=== PATIENT | female | born 1970 | race Caucasian/White ===

== ENCOUNTER 2019-09-18 20:43 | Emergency (ER) | payer OTHER ==
--- NOTE | 2019-09-18 21:08 | ER Document Report ---
ED Medical Screen (RME) - General Chief Complaint: Numbness of Face Stated Complaint: NUMBNESS OF FACE AND RIGHT ARM Time Seen by Provider: 09/18/19 21:03 Primary Care Provider: LUCIA SÁNCHEZ DO [Primary Care Provider] - Follow up as needed Mode of Arrival: Ambulatory Information source: Patient Notes: 48-year-old female presented to ED for complaint of numbness to the right side of her face right shoulder right arm. She states that the numbness to the right side of her tongue started l days ago then today she is developed numbness to the right side of her face shoulder arm and hand. 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 No numbness or weakness to either leg. No other symptoms. I have greeted and performed a rapid initial assessment of this patient. A comprehensive ED assessment and evaluation of the patient, analysis of test results and completion of medical decision making process will be conducted by an additional ED providers. - HPI Onset: Other - Started couple days ago the rest of the numbness started today Onset/Duration: Gradual Quality of pain: Other - Prickly tingly numbness Severity: Moderate Pain Level: 3 Associated Symptoms: None Exacerbated by: Denies Relieved by: Denies Similar symptoms previously: Yes Recently seen / treated by doctor: No - Related Data Smoking: Non-smoker Frequency of alcohol use: None Drug Abuse: None Allergies/Adverse Reactions: No Known Allergies Allergy (Unverified 09/18/19 21:05) Past Medical History - General Information source: Patient - Social History Cigarette use (# per day): No Chew tobacco use (# tins/day): No Frequency of alcohol use: None Drug Abuse: None Lives with: Family Family history: Reviewed & Not Pertinent - Past Medical History Cardiac Medical History: Reports: Hx Hypertension, Other - Reynard's Pulmonary Medical History: Reports: None Neurological Medical History: Reports: None Endocrine Medical History: Reports: None Renal/ Medical History: Reports: None Malignancy Medical History: Reports: None GI Medical History: Reports: None Musculoskeltal Medical History: Reports Hx Arthritis, Reports Hx Musculoskeletal Deformity Skin Medical History: Reports None Psychiatric Medical History: Reports: None Traumatic Medical History: Reports: None Infectious Medical History: Reports: None Past Surgical History: Reports: Hx Cholecystectomy, Hx Hysterectomy, Hx Orthopedic Surgery - Lumbar fusion Doctor's Discharge - Discharge Referrals: ROSKA,LUCIA, DO [Primary Care Provider] - Follow up as needed
--- NOTE | 2019-09-18 21:53 | RADIOLOGY REPORT (SQ) ---
EXAM DESCRIPTION: CT HEAD WITHOUT INTRAVENOUS CONTRAST CLINICAL HISTORY: Paresthesia right face tongue arm shoulder hand COMPARISON: None TECHNIQUE: CT of the head was performed without intravenous contrast .This exam was performed according to our departmental dose-optimization program, which includes automated exposure control, adjustment of the mA and/or KV according to the patient's size and/or use of iterative reconstruction technique. FINDINGS: There is no intracranial hemorrhage, midline shift, mass effect or acute focal infarct. Enlarged sella turcica the pituitary gland appears displaced posteriorly. The superior aspect of the sella turcica is occupied by fat density possibly lipoma. Approximately 12 x 7.5 x 10 mm. There is good sue/white matter differentiation. The ventricular system is normal. Visualized mastoid air cells within normal limits. The paranasal sinuses within normal limits. There is no visualization of calvarial or skull base fractures. Incidental mild hyperostosis frontalis. 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 Consider evaluation of the pituitary gland with MRI including gadolinium. There are no acute intracranial findings.
[2019-09-18 22:30] LABS: ABSOLUTE EOSINOPHILS # (AUTO) 0.1 10^3/uL (0.0-0.6); ABSOLUTE LYMPHOCYTES (AUTO) 2.5 10^3/uL (0.5-4.7); ABSOLUTE MONOCYTES (AUTO) 0.4 10^3/uL (0.1-1.4); ABSOLUTE NEUT (AUTO) 7.9 10^3/uL (1.7-8.2); BASOPHILS % (AUTO) 0.4 % (0-2); EOSINOPHILS % (AUTO) 1.3 % (0-6); HEMATOCRIT 39.9 % (36.0-47.0); HEMOGLOBIN 13.5 g/dL (12.0-15.5); LYMPHOCYTES % (AUTO) 22.4 % (13-45); MEAN CORPUSCULAR HEMOGLOBIN 27.8 pg (27.0-33.4); MEAN CORPUSCULAR HGB CONC 33.8 g/dL (32.0-36.0); MEAN CORPUSCULAR VOLUME 82 fl (80-97); PLATELET COUNT 305 10^3/uL (150-450); RED BLOOD COUNT 4.85 10^6/uL (3.72-5.28); RED CELL DISTRIBUTION WIDTH 14.8 % (11.5-14.0); SEGMENTED NEUTROPHILS % (AUTO) 71.9 % (42-78); TOTAL CELLS COUNTED % (AUTO) 100 %
[2019-09-18 22:40] LABS: INTERNATIONAL RATION (INR) 0.98
[2019-09-18 22:41] LABS: PARTIAL THROMBOPLASTIN TIME 30.3 SEC (23.5-35.8)
[2019-09-18 22:59] LABS: ALBUMIN 4.1 g/dL (3.5-5.0); ALKALINE PHOSPHATASE 102 U/L (38-126); ANION GAP 10 (5-19); ASPARTATE AMINO TRANSFERASE 24 U/L (14-36); BILIRUBIN,DIRECT 0.2 mg/dL (0.0-0.4); BILIRUBIN,TOTAL 0.5 mg/dL (0.2-1.3); BLOOD UREA NITROGEN 16 mg/dL (7-20); CALCIUM 9.7 mg/dL (8.4-10.2); CARBON DIOXIDE 31 mmol/L (22-30); CHLORIDE 97 mmol/L (98-107); GLUCOSE 114 mg/dL (75-110); POTASSIUM 3.5 mmol/L (3.6-5.0); TOTAL PROTEIN 7.3 g/dL (6.3-8.2)
--- NOTE | 2019-09-19 04:05 | ER Document Report ---
ED General <MEHEREN OLMOS - Last Filed: 09/19/19 10:15> - General Mode of Arrival: Ambulatory Information source: Patient TRAVEL OUTSIDE OF THE [place] IN LAST 30 DAYS: No - Related Data Home Medications: losartan, hctz, cardizem, b12 <MARVIN MONTERO - Last Filed: 09/20/19 09:52> - General Chief Complaint: Numbness Stated Complaint: NUMBNESS OF FACE AND RIGHT ARM Time Seen by Provider: 09/18/19 21:03 Primary Care Provider: NEUROLOGY [Provider Group] - Follow up as needed LUCIA SÁNCHEZ DO [ASSOCIATE] - Follow up as needed Notes: 48-year-old woman numbness and tingling in her tongue on the right half. States that the symptoms began approximately 2 days ago. 1 day prior to coming in she developed right facial tingling numbness and tingling in the right arm and hand. She denies weakness in extremities or speech, visual changes. She denies prior history of similar episodes. Denies medical history except hypertension. (MARVIN MONTERO) - Related Data Allergies/Adverse Reactions: No Known Allergies Allergy (Unverified 09/18/19 21:05) Past Medical History - Social History Family History: Reviewed & Not Pertinent <MEHREEN OLMOS - Last Filed: 09/19/19 10:15> - General Information source: Patient - Social History Smoking Status: Never Smoker Cigarette use (# per day): No Chew tobacco use (# tins/day): No Frequency of alcohol use: None Drug Abuse: None Lives with: Family Patient has suicidal ideation: No Patient has homicidal ideation: No - Past Medical History Cardiac Medical History: Reports: Hx Hypertension, Other - Reynard's Pulmonary Medical History: Reports: None Neurological Medical History: Reports: None Endocrine Medical History: Reports: None Renal/ Medical History: Reports: None Malignancy Medical History: Reports: None GI Medical History: Reports: None Musculoskeletal Medical History: Reports Hx Arthritis, Reports Hx Musculoskeletal Deformity Skin Medical History: Reports None Psychiatric Medical History: Reports: None Traumatic Medical History: Reports: None Infectious Medical History: Reports: None Past Surgical History: Reports: Hx Cholecystectomy, Hx Hysterectomy, Hx Orthopedic Surgery - Lumbar fusion <MARVIN MONTERO - Last Filed: 09/20/19 09:52> Review of Systems <MARVIN MONTERO - Last Filed: 09/20/19 09:52> - Review of Systems Notes: Constitutional: Negative for fever. HENT: Negative for sore throat. Eyes: Negative for visual changes. Cardiovascular: Negative for chest pain. Respiratory: Negative for shortness of breath. Gastrointestinal: Negative for abdominal pain, vomiting or diarrhea. Genitourinary: Negative for dysuria. Musculoskeletal: Negative for back pain. Skin: Negative for rash. Neurological: + Paresthesia right side of the tongue, right facial and right upper extremity., No weakness 10 point ROS negative except as marked above and in HPI. (MARVIN MONTERO) Physical Exam <MARVIN MONTREO - Last Filed: 09/20/19 09:52> - Vital signs Vitals: Temp Pulse BP Pulse Ox 98.4 F 81 159/107 H 100 09/18/19 20:59 09/18/19 20:59 09/18/19 20:59 09/18/19 20:59 - Notes Notes: PHYSICAL EXAMINATION: Physical Exam: General: Well-nourished well-developed overweight female in no acute distress HEENT: NC/AT, pupils equal round and reactive to light, MM moist,nares clear, oropharynx clear, airway patent Neck: supple, no adenopathy, no masses. Good range of motion Lungs: clear, no wheezing, no rales no rhonchi CVS: Regular rate and rhythm no murmur gallop or rub Abdomen: Soft, active, nontender, no masses, no hepatosplenomegaly Ext: No edema, clubbing or cyanosis. Neuro: Alert and responsive, moving all 4 extremities on command, cranial nerves intact, no focal findings Skin: Intact no open lesions, no rash PSYCH: Normal mood, normal affect. (MARVIN MONTERO) Course - Laboratory Result Diagrams: 09/18/19 22:10 09/18/19 22:10 <MEHREEN OLMOS - Last Filed: 09/19/19 10:15> - Laboratory Result Diagrams: 09/18/19 22:10 09/18/19 22:10 - Diagnostic Test Radiology reviewed: Image reviewed, Reports reviewed - CT of the head suspected intracellular fatty lesion possibly lipoma, consider evaluation of the pituitary gland with MRI including gadolinium. <MARVIN MONTERO - Last Filed: 09/20/19 09:52> - Re-evaluation Re-evalutation: 09/19/19 10:16 Patient was signed out to me by Dr. Montero. This is a middle-aged female who has had some paresthesias over the right side of her face extending to the right shoulder area over the last several days with an objectively normal neurologic examination per Dr. Montero. Patient also reports some slight tinnitus in volving the right ear and some mild dysgeusia. Patient has persistent paresthesias of the right side of the face on my evaluation but no objective sensory loss. She may have some very subtle right-sided facial ptosis but this does not look a lot different per her . MRI with gadolinium had been ordered but patient is allergic to the contrast agent so she had an unenhanced study. This is read as normal by the radiologist. 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 I discussed options for treatment with patient and her and it was agreed that we would put her on steroid and some acyclovir and have her follow-up with her primary care doctor and neurologist on outpatient basis. (MEHREEN OLMOS) 09/19/19 06:13 I discussed the findings of the CT scan and laboratory data with the patient and explained that a recommendation for MRI had been made by the radiologist. Patient has requested that the MRI be done possible before she is discharged as she would like to get the information to exclude pathology that may require intervention. I explained that an MRI cannot be done before 7 AM. She states she is willing to wait. Patient care is discussed with Dr. Olmos, he will follow-up on the MRI results. (MARVIN MONTERO) - Vital Signs Vital signs: Temp Pulse Resp BP Pulse Ox 98 F 97 18 141/89 H 98 09/19/19 10:36 09/19/19 10:36 09/19/19 10:36 09/19/19 10:36 09/19/19 10:36 - Laboratory Laboratory results interpreted by me: 09/18/19 09/18/19 22:10 22:10 WBC 11.0 H RDW 14.8 H Potassium 3.5 L Chloride 97 L Carbon Dioxide 31 H Glucose 114 H (MARVIN MONTERO) Discharge <MEHREEN OLMOS - Last Filed: 09/19/19 10:15> <MARVIN MONTERO - Last Filed: 09/20/19 09:52> - Discharge Clinical Impression: Facial paresthesia Condition: Stable Disposition: HOME, SELF-CARE Additional Instructions: Follow-up with your primary care provider and neurologist as instructed. Take prescribed medications as directed. Return here as needed for new or worsening symptoms. Prescriptions: Acyclovir [Acyclovir 400 mg Tablet] 800 mg PO 5XD 10 Days #50 tablet Prednisone [Deltasone 20 mg Tablet] 2 tab PO DAILY 5 Days tablet Referrals: LUCIA SÁNCHEZ DO [ASSOCIATE] - Follow up as needed NEUROLOGY [Provider Group] - Follow up as needed
[2019-09-19] MEDS ORDERED: ACETAMINOPHEN 325 MG TABLET PO ONE (04:11)
--- NOTE | 2019-09-19 09:08 | RADIOLOGY REPORT (SQ) ---
EXAM DESCRIPTION: MRI HEAD WITHOUT COMPLETED DATE/TIME: 09/19/2019 8:21 am REASON FOR STUDY: Abnormal CT scan of the head COMPARISON: None. TECHNIQUE: Multiplanar imaging includes non-contrasted T1, T2, FLAIR, and diffusion with ADC map seq uences. Images stored on PACS. LIMITATIONS: None. FINDINGS: ANATOMY: Empty sella anatomic variant. CSF SPACES: Normal in size and contour. No hemorrhage. CEREBRUM: Sulci and gyri normal in size and contour. Normal white matter signal on FLAIR imaging. No evidence of hemorrhage, mass, or extraaxial fluid collection. POSTERIOR FOSSA: No signal alteration. No hemorrhage. No edema, masses or mass effect. Internal keesha tory canals, cerebello-pontine angles, mastoids normal. DIFFUSION IMAGING: Negative for acute or sub-acute infarction. ORBITS: No masses. Globes normal. PARANASAL SINUSES: No fluid levels. Mucosa normal. OTHER: No other significant finding. IMPRESSION: Normal brain. Normal pituitary. EVIDENCE OF ACUTE STROKE: NO. TECHNICAL DOCUMENTATION: JOB ID: [id number] 2010 [employer]- All Rights Reserved Reading location - IP/workstation name: [email or web address]
[2019-09-19 10:37] VITALS: BP 141/89
== END 2019-09-19 10:36 | disposition home or self-care (01) ==
LOC: ER 20:43
DX: R20.2 Paresthesia of skin (principal); H93.11 Tinnitus, right ear; I10 Essential (primary) hypertension; Z90.49 Acquired absence of other specified parts of digestive tract; Z90.710 Acquired absence of both cervix and uterus; Z91.041 Radiographic dye allergy status
CPT/HCPCS: 36415; 70450; 70551; 80053; 85025; 85610; 85730; 99284

== ENCOUNTER 2020-02-13 08:30 | Emergency (ER) | payer OTHER ==
--- NOTE | 2020-02-13 08:59 | ER Document Report ---
ED General - General Chief Complaint: Rash Stated Complaint: RASH Time Seen by Provider: 02/13/20 08:44 Primary Care Provider: LUCIA EHNDERSON PA-C [Primary Care Provider] - Follow up as needed TRAVEL OUTSIDE OF THE [place] IN LAST 30 DAYS: No - HPI Notes: Patient is a 49-year-old female who presents to the emergency department for evaluation of rash. She states this started about a week ago and has been spreading since. It primarily itches, occasional yen. She states it starts as small blisters. She is had no fevers or chills. No chest pain or shortness of breath. No coughing. She denies any nausea or vomiting. No difficulty swallowing. No swelling of the tongue or lips. She has had no new medications. She has seen telehealth. They started her on doxycycline and a topical antibiotic, which she is unsure of the name. She states that it only seems to be getting worse. It started on her left ear and face. Now it has gone inside of her nose, down her neck, and onto the left side of her chest. She states that it yen, but it really does not hurt to touch it lightly. - Related Data Allergies/Adverse Reactions: No Known Allergies Allergy (Unverified 09/18/19 21:05) Home Medications: Cardizem, losartan, hydrochlorothiazide Past Medical History - General Information source: Patient - Social History Smoking Status: Never Smoker Drug Abuse: None Family History: Reviewed & Not Pertinent - Medical History Medical History: Other - Raynauds - Past Medical History Cardiac Medical History: Reports: Hx Hypertension Musculoskeletal Medical History: Reports Hx Arthritis, Reports Hx Musculoskeletal Deformity Past Surgical History: Reports: Hx Cholecystectomy, Hx Hysterectomy, Hx Orthopedic Surgery - Lumbar fusion Physical Exam - Vital signs Vitals: Temp Pulse Resp BP Pulse Ox 98.6 F 77 16 162/99 H 99 02/13/20 08:36 02/13/20 08:36 02/13/20 08:36 02/13/20 08:36 02/13/20 08:36 - Notes Notes: This is a very pleasant 49-year-old female who appears her stated age, no acute distress. Has normocephalic and atraumatic, pupils are equal round, reactive to light. Oral mucosa is moist. No edema of the tongue or lips. Pharynx is without erythema or exudate, no edema noted. Heart is regular rate and rhythm, lungs are clear to auscultation bilaterally. Examination of the skin yields maculopapular and occasionally vesicular rashes noted over the left ear, inferior to the nose, across her anterior neck, overlying her sternal notch. There is a small vesicular rash, which appears to be excoriated, noted underneath the left breast. Course - Re-evaluation Re-evalutation: 02/13/20 09:10 Patient presents to the emergency department for evaluation of a rash. She has absolutely no associated symptoms with this rash besides the itching and pain associated with it. She has no constitutional symptoms. Evidently telehealth was concerned about widespread infection, but she is not showing any signs of toxicity. She is not significantly tender to light touch as would be expected with zoster, and this would have to be disseminated, and I would expect the patient to be much more ill. At this point I do suspect a contact dermatitis from an unknown source, and the patient agrees this is possible as well. She is encouraged to continue the antibiotics and topical ointment. I will start her on a prednisone taper. She is to follow-up with primary care, return to the emergency department for worsening or new concerning symptoms of any sort. - Vital Signs Vital signs: Temp Pulse Resp BP Pulse Ox 98.6 F 77 16 162/99 H 99 02/13/20 08:36 02/13/20 08:36 02/13/20 08:36 02/13/20 08:36 02/13/20 08:36 Discharge - Discharge Clinical Impression: Contact dermatitis Qualifiers: Contact dermatitis type: unspecified Condition: Stable Disposition: HOME, SELF-CARE Instructions: Contact Dermatitis ([facility]) Additional Instructions: Take prednisone as directed until it is gone. Use antihistamines [id number], either nondrowsy or drowsy, as needed for itching. Keep areas clean with soap and water. Continue medications as prescribed by primary care. Return to the emergency department with worsening or new concerning symptoms of any sort. Prescriptions: Prednisone [Deltasone 20 mg Tablet] See Protocol PO DAILY #20 tablet Referrals: LUCIA HENDERSON PA-C [Primary Care Provider] - Follow up as needed
[2020-02-13 09:54] VITALS: BP 138/92
== END 2020-02-13 09:54 | disposition home or self-care (01) ==
LOC: ER 08:30
DX: L25.8 Unspecified contact dermatitis due to other agents (principal); R21 Rash and other nonspecific skin eruption; Z79.899 Other long term (current) drug therapy
CPT/HCPCS: 99282